=== PATIENT | male | born 1950 | race Two or more races ===

== ENCOUNTER 2024-12-27 10:06 | Emergency (ER) | payer OTHER ==
[~2024-12-27] VITALS: Ht 157.5 cm; Wt 102.3 kg
[2024-12-27 10:32] LABS: Urine Bacteria None Seen /hpf (None Seen)
[2024-12-27 10:37] LABS: Urine Blood 3+ /uL (Negative); Urine Clarity Turbid (Clear); Urine Color Colorless (Yellow); Urine Protein, UAD TRACE (Negative); Urine Specific Gravity 1.018 (1.001-1.035); Urine Squamous Epithelial Cell FEW /hpf (<5); Urine Urobilinogen Normal (Negative); Urine WBC 10 /HPF (0-3)
[2024-12-27 10:40] LABS: Basophils # (auto) 0.1 10 ^3/uL (0-0.2); Basophils % (auto) 1.2 % (0.0-2.0); Eosinophils # (auto) 0.6 10 ^3/uL (0-0.8); Eosinophils % (auto) 4.6 % (0.0-7.0); Hematocrit 46.4 % (41.0-53.0); Hemoglobin 16.1 g/dL (13.5-17.5); Lymphocytes # (auto) 4.3 10 ^3/uL (0.4-5.4); Lymphocytes % (auto) 36.2 % (10.0-50.0); Mean Corpuscular Hemoglobin 31.6 pg (28.0-32.0); Mean Corpuscular Hgb Conc. 34.7 g/dL (32.0-36.0); Mean Corpuscular Volume 91.1 fL (80.0-100.0); Monocytes # (auto) 0.9 10 ^3/uL (0-1.3); Monocytes % (auto) 7.7 % (0.0-12.0); Neutrophils % (auto) 50.3 % (37.0-80.0); Nucleated Red Blood Cells % 0.1 %; Platelet Count (auto) 269 10^3/uL (140-450); Red Cell Distribution Width 14.3 % (11.8-14.3)
[2024-12-27 10:49] LABS: Chloride 104 mmol/L (98-107); Potassium 4.3 mmol/L (3.5-5.1); Sodium 138 mmol/L (136-145)
[2024-12-27 10:50] LABS: Anion Gap 9 (5-15); Calcium 9.9 mg/dL (8.7-10.4); Carbon Dioxide 25 mmol/L (20-31)
[2024-12-27 10:55] LABS: Blood Urea Nitrogen 12 mg/dL (9-23); Glucose 99 mg/dL (74-106)
--- NOTE | 2024-12-27 11:07 | ED.PDOC ---
General HPI Comments 74-year-old male presents with a chief complaint of hematuria and dysuria. Patient states that for the past 2 days he has been having gross hematuria and pain upon urination. Patient mentions that he has been taking Aspirin daily for the past few days. Patient was also hypertensive in triage and reports that he has been compliant with his medication. Patient denies any chest pain or SOB. Chief Complaint: Urinary Time Seen by MD: 10:31 Reviewed notes: Medications, Allergies Allergies: Coded Allergies: Penicillins (Verified Allergy, Unknown, 12/27/24) Information Source: Patient, Relative (Child) Mode of Arrival: Ambulatory Severity: Moderate Inability to void: None Timing: Days Duration: Since onset Has not urinated for: Minutes Prehospital treatment: None Onset: Spontaneous Symptoms: Dysuria, Hematuria History of: BPH Location: None Penile discharge: None associated signs and symptoms: Dysuria, Hematuria Past Medical History PAST MEDICAL HISTORY: HTN Surgical History: Denies all surgeries Family History Family History: Reviewed,noncontributory to illness Social History Smoker: Non-Smoker Alcohol: Denies ETOH Use Drugs: Denies Drug Use Lives In: Home Constitutional: denies: chills, diaphoresis, fatigue, fever, malaise, sweats, weakness, others EENTM: denies: blurred vision, double vision, ear bleeding, ear discharge, ear drainage, ear pain, ear ringing, eye pain, eye redness, hearing loss, mouth pain, mouth swelling, nasal discharge, nose bleeding, nose congestion, nose pain, photophobia, tearing, throat pain, throat swelling, voice changes, others Respiratory: denies: cough, hemoptysis, orthopnea, SOB at rest, shortness of breath, SOB with excertion, stridor, wheezing, others Cardiovascular: denies: chest pain, dizzy spells, diaphoresis, Dyspnea on exertion, edema, irregular heart beat, left arm pain, lightheadedness, palpitations, PND, syncope, others Gastrointestinal: denies: abdomen distended, abdominal pain, blood streaked bowels, constipated, diarrhea, dysphagia, difficulty swallowing, hematemesis, melena, nausea, poor appetite, poor fluid intake, rectal bleeding, rectal pain, vomiting, others Genitourinary: reports: dysuria, hematuria; denies: burning, flank pain, frequency, incontinence, penile discharge, penile sore, pain, testicle pain, testicle swelling, urgency, others Neurological: denies: dizziness, fainting, headache, left sided numbness, left sided weakness, numbness, paresthesia, pre-existing deficit, right sided numbne ss, right sided weakness, seizure, speech problems, tingling, tremors, weakness, others Musculoskeletal: denies: back pain, gout, joint pain, joint swelling, muscle pain, muscle stiffness, neck pain, others Integumetry: denies: bruises, change in color, change in hair/nails, dryness, laceration, lesions, lumps, rash, wounds, others Allergic/Immunocompromised: denies: Difficulty Healing, Frequent Infections, Hives, Itching, others Hematologic/Lymphatic: denies: anemia, blood clots, easy bleeding, easy bruising, swollen glands, others Endocrine: denies: excessive hunger, excessive sweating, excessive thirst, excessive urination, flushing, intolerance to cold, intolerance to heat, unexplained weight gain, unexplained weight loss, others Psychiatric: denies: anxiety, bipolar disorder, depression, hopeless, panic disorder, schizophrenia, sleepless, suicidal, others All Other Systems: Reviewed and Negative Physical Exam General Appearance: No Apparent Distress, Obese HEENT: Normal ENT Inspection, Pharynx Normal, TMs Normal Neck: Full Range of Motion, Non-Tender, Normal, Normal Inspection Respiratory: Chest Non-Tender, Lungs Clear, No Accessory Muscle Use, No Respiratory Distress, Normal Breath Sounds Cardiovascular: No Edema, No JVD, No Murmur, No Gallop, Normal Peripheral Pulses, Regular Rate/Rhythm Breast Exam: Deferred Gastrointestinal: No Organomegaly, Non Tender, No Pulsatile Mass, Normal Bowel Sounds, Soft Genitalia: Deferred Pelvic: Deferred Rectal: Deferred Extremities: No calf tenderness, Normal capillary refill, Normal inspection, Normal range of motion, Non-tender, No pedal edema Musculoskeletal : Apperance: Normal Neurologic: Alert, 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 Was a procedure done?: No Differential Diagnosis Kidney stone (Female): Other Penile/Scrotal: Prostatitis, STD, UTI, Fractured Penis, Urolithiasis, Urinary Retention Urinary Problem (Male): Bladder Obstruction, Prostatitis, Plelonephritis, Renal Failure, Urethritis, Urinary Retention, Other Other Differential Diagnosis Medication side effect X-Ray, Labs, Meds, VS Vital Signs Date Time Temp Pulse Resp B/P (MAP) Pulse Ox O2 Delivery O2 Flow Rate FiO2 12/27/24 12:20 64 16 95 Room Air 12/27/24 12:20 98.2 64 16 127/73 (91) 95 98.2 12/27/24 10:10 98.1 67 18 199/74 (115) 96 186/80 (115) 12/27/24 10:10 98.1 67 18 199/74 (115) 96 98.1 186/80 (115) 12/27/24 10:10 Room Air* 0 21 Lab Test 12/27/24 10:31 12/27/24 10:14 Range/Units White Blood Count 12.0 H 4.4-10.8 10^3/uL Red Blood Count 5.10 4.5-5.90 10^6/uL Hemoglobin 16.1 13.5-17.5 g/dL Hematocrit 46.4 41.0-53.0 % Mean Corpuscular Volume 91.1 80.0-100.0 fL Mean Corpuscular Hemoglobin 31.6 28.0-32.0 pg Mean Corpuscular Hemoglobin Concent 34.7 32.0-36.0 g/dL Red Cell Distribution Width 14.3 11.8-14.3 % Platelet Count 269 140-450 10^3/uL Mean Platelet Volume 7.9 6.9-10.8 fL Neutrophils (%) (Auto) 50.3 37.0-80.0 % Lymphocytes (%) (Auto) 36.2 10.0-50.0 % Monocytes (%) (Auto) 7.7 0.0-12.0 % Eosinophils (%) (Auto) 4.6 0.0-7.0 % Basophils (%) (Auto) 1.2 0.0-2.0 % Neutrophils # (Auto) 6.0 1.6-8.6 10 ^3/uL Lymphocytes # (Auto) 4.3 0.4-5.4 10 ^3/uL Monocytes # (Auto) 0.9 0-1.3 10 ^3/uL Eosinophils # (Auto) 0.6 0-0.8 10 ^3/uL Basophils # (Auto) 0.1 0-0.2 10 ^3/uL Nucleated Red Blood Cells 0.1 % Sodium Level 138 136-145 mmol/L Potassium Level 4.3 3.5-5.1 mmol/L Chloride Level 104 98-107 mmol/L Carbon Dioxide Level 25 20-31 mmol/L Anion Gap 9 5-15 Blood Urea Nitrogen 12 9-23 mg/dL Creatinine 1.00 0.700-1.30 mg/dL Glomerular Filtration Rate Calc 78 >90 mL/min BUN/Creatinine Ratio 12.0 10.0-20.0 Serum Glucose 99 74-106 mg/dL Calcium Level 9.9 8.7-10.4 mg/dL Urine Color Colorless Yellow Urine Clarity Turbid H Clear Urine pH 6.0 5.0-9.0 Urine Specific [place] 1.018 1.001-1.035 Urine Protein Trace H Negative Urine Ketones Negative Negative Urine Blood 3+ H Negative /uL Urine Nitrite Negative Negative Urine Bilirubin Negative Negative Urine Urobilinogen Normal Negative mg/dL Urine Leukocyte Esterase Negative Negative /uL Urine RBC 964 0 - 3 /hpf Urine Microscopic WBC 10 H 0-3 /HPF Urine Squamous Epithelial Cells Few <5 /hpf Urine Bacteria None seen None Seen /hpf Urine Glucose Normal Normal mg/dL 74-year-old male presents here with hematuria. He has been taking aspirin daily 81 mg last few days. Additionally over the last few days he has not taken his verapamil given it was causing him significant dry throat/mouth. I suspect the increase in blood pressure over the last few days and concurrent use of aspirin which has thinned out the blood has caused hematuria to occur. Daughter at bedside who showed me blood in the urine from yesterday which demonstrates gross blood. However his urine today in the ER was yellow and cloudy. Urine in the ER does demonstrate 3+ blood but it appears to be microscopic. At this time additionally his blood pressure was very high in the 180s nursing staff approached me regarding his blood pressure. While in the ER on my initial evaluation of the patient I had him take his losartan 50 mg p.o.. On re-evaluation few hours later the blood pressure has improved to 127 systolic. At this time he is to stop his aspirin x5 days, stop verapamil, and started taking losartan 50 mg q.a.m. instead of losartan 25 mg p.o.. I have sent a prescription for additional losartan. Advised both the patient family anytime he has significant bleeding or is unable to urinate to return back to the ER. Both agree. They are to follow up with her PCP in 2-3 days. Time of 1ST Reevaluation: 11:01 Reevaluation 1ST: Unchanged Time of 2ND Reevaluation: 12:23 Reevaluation 2ND: Improved Patient Education/Counseling: Diagnosis, Treatment, Prognosis Family Education/Counseling: Diagnosis, Treatment, Prognosis Departure 1 Departure Time of Disposition: 12:01 Impression: Primary Impression: Hematuria Qualified Codes: R31.0 - Gross hematuria Additional Impression: Hypertensive urgency Disposition: 01 HOME / SELF CARE / HOMELESS Condition: Fair Additional Instructions: Do not take aspirin for 1 week. Do not take verapamil anymore given your throat discomfort. Currently you take losartan 25 mg once a day, double that to losartan 50 mg once a day. If you have significant bleeding or unable to urinate, please return back to the emergency department. Follow up with the primary care physician in 2-3 days. e-Prescriptions Losartan Potassium (Losartan Potassium) 50 Mg Tab 1 TAB PO DAILY, #30 TAB 5 Refills Prov: CHIVO STILL MD 12/27/24 Discharged With: Self, Relative Critical Care Note Critical Care Time?: No Stability Stability form required: No Heart Score Heart Score: Heart Score Response (Comments) Value History N/A 0 EKG N/A 0 Age N/A 0 Risk Factors N/A 0 Troponin N/A 0 Total 0 I personally scribed for CHIVO STILL MD ([email or web address]) on 12/27/24 at 11:07. Electronically submitted by Bharath Reeder ([email or web address]). I personally scribed for CHIVO STILL MD ([email or web address]) on 12/27/24 at 12:24. Electronically submitted by Bharath Reeder ([email or web address]). CHIVO STILL MD Dec 27, 2024 11:07
[2024-12-27 12:20] VITALS: BP 127/73; PULSE 64; RESP 16; TEMP 98.2; O2SAT 95
[2024-12-27] MEDS ORDERED: LOSA-534 PO (12:37)
== END 2024-12-27 12:44 | disposition home or self-care (01) ==
LOC: ER 10:06
DX: R31.9 Hematuria, unspecified (principal); I16.0 Hypertensive urgency; Z88.0 Allergy status to penicillin
CPT/HCPCS: 36415; 80048; 81001; 85025